=== PATIENT | female | born 1970 | race Caucasian/White ===

== ENCOUNTER 2017-06-23 19:11 | Emergency (ER) | payer BC ==
[2017-06-23] MEDS ORDERED: Ketorolac 60 MG/2 ML SDV IM ONE (19:34)
--- NOTE | 2017-06-23 19:37 | EDM.PDOC ---
ED HPI GENERAL MEDICAL PROBLEM - General Chief Complaint: General Stated Complaint: HIGH BLOOD PRESSURE Time Seen by Provider: 06/23/17 19:25 - History of Present Illness INITIAL COMMENTS - FREE TEXT/NARRATIVE: HISTORY AND PHYSICAL: History of present illness: The patient is a 47-year-old female with a history of hypertension who lives in [place] and is here visiting her family and presents with complaints of elevated blood pressure. According to the patient she has been on valsartan 320 mg daily for over a year and she saw her provider just days ago, on Sunday, and her systolic was 160 and her doctor added a second medication. Currently she cannot recall the name of the meds and her family is trying to ascertain that. She says that since that time she has not felt any better and she still feels like her blood pressures running high. She has a headache but no chest pain or shortness of breath no vomiting no abdominal pain and no leg swelling. She tested her family doctor who is also personal friend who recommended that she come to the ER. The patient took one aspirin earlier but has not taken anything specifically for her headache which she describes as diffuse and not localized to one area. It is not excruciating but it is more dull and achy. The patient also says that the headache is not new today and has been ongoing the last 1 week. Review of systems: As per history of present illness and below otherwise all systems reviewed and negative. Past medical history: As per history of present illness and as reviewed below otherwise noncontributory. Surgical history: As per history of present illness and as reviewed below otherwise noncontributory. Social history: No reported history of drug or alcohol abuse. Family history: As per history of present illness and as reviewed below otherwise noncontributory. Physical exam: Gen.: Well-developed well-nourished female who is nontoxic and vital signs were noted by me HEENT: Atraumatic, normocephalic,negative for conjunctival pallor or scleral icterus, mucous membranes moist, throat clear, neck supple, nontender, trachea midline. Lungs: Clear to auscultation, breath sounds equal bilaterally, chest nontender. Heart: S1S2, regular and rhythm no overt murmurs Abdomen: Soft, nondistended, nontender. NABS Pelvis: Deferred Genitourinary: Deferred. Rectal: Deferred. Extremities: Atraumatic, negative for cords or calf pain. Neurovascular unremarkable. No pedal edema or leg asymmetry Neuro: Awake, alert, oriented. Cranial nerves II through XII unremarkable. Cerebellum unremarkable. Motor and sensory unremarkable throughout. Exam nonfocal. Diagnostics: EKG CBC CMP troponin UA Therapeutics: Toradol or an oral medication was offered to the patient for her headache and she declines all meds Patient and family at bedside are aware of all testing results and we will give her copies of these labs to that she can talk to her family doctor about them. Her most recent blood pressure is 188/89 and she again refuses any medications for her headache. She says the headache is not new or different she has had it all week. She says that she will contact her provider and discuss her blood pressure medications and she is aware that I will not be changing them here in the emergency department. Because her headache I did offer her a CAT scan although she is not showing signs and symptoms of an acute emergency but in light of her discomfort for the last week and her blood pressure variation I did offer to her and she declines at this time. The patient now tells me that the medication that was added on Sunday is amlodipine but she does not know the dose Impression: Hypertension, orally controlled Definitive disposition and diagnosis as appropriate pending reevaluation and review of above. Generalized Pain Score (Numeric/FACES): 6 - Related Data Allergies Allergy/AdvReac Type Severity Reaction Status Date / Time cephalexin [From Keflex] Allergy Hives Verified 06/23/17 19:25 Penicillins Allergy Hives Verified 06/23/17 19:25 Sulfa (Sulfonamide Allergy Hives Verified 06/23/17 19:25 Antibiotics) Home Meds: Home Meds Blood Pressure Medication 06/23/17 [History] Valsartan 320 mg PO DAILY 06/23/17 [History] amLODIPine Besylate [Amlodipine Besylate] 10 mg PO DAILY 06/23/17 [History] ED ROS GENERAL - Review of Systems Review Of Systems: ROS reveals no pertinent complaints other than HPI. ED EXAM, GENERAL - Physical Exam Exam: See Below (see dictation) Course - Vital Signs Last Recorded V/S: Last Vital Signs Temp 36.9 C 06/23/17 19:20 Pulse 55 L 06/23/17 19:20 Resp 18 06/23/17 19:20 BP 202/98 H 06/23/17 19:20 Pulse Ox 100 06/23/17 19:20 - Orders/Labs/Meds Orders: Active Orders 24 hr Category Date Time Status EKG Documentation Completion [RC] STAT Care 06/23/17 19:33 Active Labs: Laboratory Tests 06/23/17 06/23/17 06/23/17 Range/Units 19:40 19:43 19:43 WBC 7.10 (4.0-11.0) K/uL RBC 4.79 (4.30-5.90) M/uL Hgb 14.8 (12.0-16.0) g/dL Hct 43.7 (36.0-46.0) % MCV 91.2 (80.0-98.0) fL MCH 30.9 (27.0-32.0) pg MCHC 33.9 (31.0-37.0) g/dL RDW Std Deviation 42.0 (28.0-62.0) fl RDW Coeff of Yury 13 (11.0-15.0) % Plt Count 272 (150-400) K/uL MPV 11.60 (7.40-12.00) fL Neut % (Auto) 56.6 (48.0-80.0) % Lymph % (Auto) 35.8 (16.0-40.0) % Becker % (Auto) 4.8 (0.0-15.0) % Eos % (Auto) 1.8 (0.0-7.0) % Baso % (Auto) 1.0 (0.0-1.5) % Neut # (Auto) 4.0 (1.4-5.7) K/uL Lymph # (Auto) 2.5 H (0.6-2.4) K/uL Becker # (Auto) 0.3 (0.0-0.8) K/uL Eos # (Auto) 0.1 (0.0-0.7) K/uL Baso # (Auto) 0.1 (0.0-0.1) K/uL Nucleated RBC % 0.0 /100WBC Nucleated RBCs # 0 K/uL Sodium 141 (136-146) mmol/L Potassium 3.6 (3.5-5.1) mmol/L Chloride 105 (98-110) mmol/L Carbon Dioxide 27 (21-31) mmol/L BUN 10 (6.0-23.0) mg/dL Creatinine 0.7 (0.6-1.5) mg/dL Est Cr Clr Drug Dosing 91.32 mL/min Estimated GFR (MDRD) > 60.0 ml/min Glucose 85 (60-110) mg/dL Calcium 8.7 L (8.8-10.8) mg/dL Total Bilirubin 0.5 (0.1-1.5) mg/dL AST 37 (5-40) IU/L ALT 36 (8-54) IU/L Alkaline Phosphatase 78 (40-150) Troponin I < 0.10 (0.0-0.29) NG/ML Total Protein 7.4 (6.0-8.0) g/dL Albumin 4.3 (3.5-5.0) g/dL Globulin 3.1 (2.0-3.5) g/dL Albumin/Globulin Ratio 1.4 (1.3-2.8) Urine Color YELLOW Urine Appearance CLEAR Urine pH 6.5 (5.0-8.0) Ur Specific [place] <= 1.005 (1.001-1.035) Urine Protein NEGATIVE (NEGATIVE) mg/dL Urine Glucose (UA) NEGATIVE (NEGATIVE) mg/dL Urine Ketones NEGATIVE (NEGATIVE) mg/dL Urine Occult Blood NEGATIVE (NEGATIVE) Urine Nitrite NEGATIVE (NEGATIVE) Urine Bilirubin NEGATIVE (NEGATIVE) Urine Urobilinogen 0.2 (<2.0) EU/dL Ur Leukocyte Esterase NEGATIVE (NEGATIVE) Urine RBC 0-2 (0-2/HPF) Urine WBC 0-1 (0-5/HPF) Ur Epithelial Cells RARE (NONE-FEW) Urine Bacteria RARE (NEGATIVE) Meds: Medications Discontinued Medications Generic Name Dose Route Start Last Admin Trade Name Freq PRN Reason Stop Dose Admin Ketorolac Tromethamine 60 mg 06/23/17 19:34 06/23/17 19:50 Toradol IM 06/23/17 19:35 Not Given ONETIME ONE Departure - Departure Time of Disposition: 20:40 Disposition: Home, Self-Care 01 Condition: Fair Clinical Impression: Hypertension Qualifiers: Hypertension type: unspecified Qualified Code(s): I10 - Essential (primary) hypertension - Discharge Information Referrals: PCP,None [Primary Care Provider] - Forms: ED Department Discharge Additional Instructions: The following information is given to patients seen in the emergency department who are being discharged to home. This information is to outline your options for follow-up care. We provide all patients seen in our emergency department with a follow-up referral. The need for follow-up, as well as the timing and circumstances, are variable depending upon the specifics of your emergency department visit. If you don't have a primary care physician on staff, we will provide you with a referral. We always advise you to contact your personal physician following an emergency department visit to inform them of the circumstance of the visit and for follow-up with them and/or the need for any referrals to a consulting specialist. The emergency department will also refer you to a specialist when appropriate. This referral assures that you have the opportunity for followup care with a specialist. All of these measure are taken in an effort to provide you with optimal care, which includes your followup. Under all circumstances we always encourage you to contact your private physician who remains a resource for coordinating your care. When calling for followup care, please make the office aware that this follow-up is from your recent emergency room visit. If for any reason you are refused follow-up, please contact the [facility] emergency department at and ask to speak to the emergency department charge nurse. [facility] Primary care- Internal Medicine and Family [address] [address] Please contact and discuss with your provider back home in [place] your blood pressure medications. Please watch your salt and sodium intake and foods while you're traveling. Please use [id number] medications for your headache pain and try a heating pad on her neck and back to help with the muscle aches. If his stay in the area please contact one of our clinic providers to be seen and have your blood pressure reevaluated and also start keeping a blood pressure journal as we discussed. Return to ER as needed and as discussed - My Orders Last 24 Hours: My Active Orders 06/23/17 19:33 EKG Documentation Completion [RC] STAT - Assessment/Plan Last 24 Hours: My Active Orders 06/23/17 19:33 EKG Documentation Completion [RC] STAT
[2017-06-23 20:11] LABS: CHLORIDE,CL 105 mmol/L (98-110); SODIUM,NA 141 mmol/L (136-146)
[2017-06-23] MEDS ORDERED: LORazepam 1 MG Tab PO ONE (21:02)
== END 2017-06-23 21:34 | disposition home or self-care (01) ==
LOC: MW.ED 19:11
DX: I10 Essential (primary) hypertension (principal); Z88.1 Allergy status to other antibiotic agents; Z88.0 Allergy status to penicillin; Z88.2 Allergy status to sulfonamides; Z79.899 Other long term (current) drug therapy
CPT/HCPCS: 36415; 80053; 81001; 84484; 85025; 93005; 96372; 99283; A9270; 99284